=== PATIENT | female | born 1990 | race Caucasian/White ===

== ENCOUNTER 2019-04-17 17:19 | Observation (INO) | payer OTHER ==
[~2019-04-17] VITALS: Ht 170.2 cm; Wt 104.3 kg
[2019-04-17] MEDS ORDERED: BETAMETHASONE ACET/BETAMET 30 MG/5 ML VIAL IM SCH (18:25)
[2019-04-17] MEDS: LACTATED RINGERS 1,000 ML IV SCH ×2 (18:34→21:13)
[2019-04-17 18:54] LABS: BASOPHILS % 0.3 % (0.0-2.0); EOSINOPHILS % 0.4 % (0.0-5.0); HEMOGLOBIN. 12.3 g/dL (12.0-16.0); LYMPHOCYTES % 26.5 % (20.0-50.0); MEAN CORPUSCULAR HEMOGLOBIN 30.1 pg (28.0-32.0); MEAN CORPUSCULAR VOLUME 88.3 fL (81.0-99.0); MEAN PLATELET VOLUME 8.9 fl (7.4-10.4); MONOCYTES % 9.2 % (2.0-8.0); NEUTROPHILS % 63.6 % (40.0-76.0); PLATELET 201 x1000/uL (130-400); RED BLOOD CELL COUNT 4.08 mill/uL (4.2-5.4); RED CELL DISTRIBUTION WIDTH 14.3 % (11.6-14.6)
[2019-04-17 19:16] LABS: D-DIMER 1.82 mg/L FEU (<0.50); INR 0.9; PARTIAL THROMBOPLASTIN TIME 28.5 sec (23.4-31.0); PROTHROMBIN TIME 9.3 sec (9.6-11.0)
[2019-04-17 20:00] LABS: CHLORIDE 107 mEq/L (98-107)
[2019-04-17] MEDS ORDERED: PANTOPRAZOLE (20:00)
[2019-04-17] MEDS ORDERED: METFORMIN (20:00)
[2019-04-17] MEDS ORDERED: INSU100V3 SUBCUT (20:00)
[2019-04-17] MEDS ORDERED: PREN1TAB78 PO (20:00)
[2019-04-17] MEDS ORDERED: NPH,100V SQ (20:00)
[2019-04-17] MEDS ORDERED: LABE200T28 PO (20:00)
[2019-04-17] MEDS ORDERED: FOLIC (20:07)
[2019-04-17 21:00] LABS: CLARITY URINE CLEAR (CLEAR); COLOR URINE YELLOW (YELLOW); KETONES URINE 3+ (NEGATIVE); LEUKOCYTE ESTERASE URINE NEGATIVE (NEGATIVE); NITRITE URINE NEGATIVE (NEGATIVE); OCCULT BLOOD URINE NEGATIVE (NEGATIVE); PROTEIN URINE TRACE (NEGATIVE); SPECIFIC GRAVITY URINE 1.021 (1.005-1.030)
[2019-04-17] MEDS ORDERED: LABETALOL HCL 200MG TABLET PO SCH (21:00)
== END 2019-04-17 21:45 | disposition home or self-care (01) ==
LOC: 8 EST LDRP 17:19
PROVIDERS: ADMIT Obstetrics & Gynecology; ATTEND Obstetrics & Gynecology
DX: O24.913 Unspecified diabetes mellitus in pregnancy, third trimester (principal); O16.3 Unspecified maternal hypertension, third trimester; Z3A.34 34 weeks gestation of pregnancy
CPT/HCPCS: 36415; 80053; 81003; 84550; 85025; 85379; 85384; 85610; 85730; 96372; A4215; G0378; J0702; J8499; J7120

== ENCOUNTER 2019-04-18 18:07 | Observation (INO) | payer OTHER ==
[~2019-04-18] VITALS: Ht 165.1 cm; Wt 82.6 kg
[~2019-04-18 18:07] MED LIST: FOLIC; INSU100V3 SUBCUT; LABE200T28 PO; METFORMIN; NPH,100V SQ; PANTOPRAZOLE; PREN1TAB78 PO
[2019-04-18] MEDS ORDERED: BETAMETHASONE ACET/BETAMET 30 MG/5 ML VIAL IM NR (18:23)
== END 2019-04-18 19:00 | disposition home or self-care (01) ==
LOC: 8 EST LDRP 18:07
PROVIDERS: ADMIT Obstetrics & Gynecology; ATTEND Obstetrics & Gynecology
DX: O13.3 Gestational [pregnancy-induced] hypertension without significant proteinuria, third trimester (principal); O24.419 Gestational diabetes mellitus in pregnancy, unspecified control; Z3A.35 35 weeks gestation of pregnancy
CPT/HCPCS: 96372; G0378; J0702

== ENCOUNTER 2019-04-26 18:37 | Inpatient (IN) | payer OTHER ==
[~2019-04-26] VITALS: Ht 170.2 cm; Wt 106.6 kg
[2019-04-26] MEDS ORDERED: LACTATED RINGERS 1,000 ML IV SCH (19:13)
[2019-04-26] MEDS ORDERED: METF-414 PO (19:22)
[2019-04-26] MEDS ORDERED: PANT20TA3 PO (19:22)
[2019-04-26] MEDS ORDERED: FOLI-43 PO (19:22)
[2019-04-26 20:24] LABS: BASOPHILS % 0.6 % (0.0-2.0); EOSINOPHILS % 0.7 % (0.0-5.0); HEMATOCRIT. 35.7 % (36.0-48.0); HEMOGLOBIN. 12.3 g/dL (12.0-16.0); LYMPHOCYTES % 31.6 % (20.0-50.0); MEAN CORPUSCULAR HEMOGLOBIN 30.2 pg (28.0-32.0); MEAN CORPUSCULAR VOLUME 87.8 fL (81.0-99.0); MEAN PLATELET VOLUME 9.9 fl (7.4-10.4); MONOCYTES % 9.3 % (2.0-8.0); NEUTROPHILS % 57.8 % (40.0-76.0); PLATELET 196 x1000/uL (130-400); RED BLOOD CELL COUNT 4.07 mill/uL (4.2-5.4); RED CELL DISTRIBUTION WIDTH 14.3 % (11.6-14.6)
[2019-04-26 20:28] LABS: CHLORIDE 106 mEq/L (98-107)
[2019-04-26 20:39] LABS: CLARITY URINE CLEAR (CLEAR); COLOR URINE YELLOW (YELLOW); KETONES URINE NEGATIVE (NEGATIVE); LEUKOCYTE ESTERASE URINE TRACE (NEGATIVE); NITRITE URINE NEGATIVE (NEGATIVE); OCCULT BLOOD URINE NEGATIVE (NEGATIVE); PH URINE 7.5 (4.5-8.0); PROTEIN URINE 1+ (NEGATIVE); SPECIFIC GRAVITY URINE 1.018 (1.005-1.030)
[2019-04-26 20:52] LABS: *AMPHETAMINES SCREEN URINE NEGATIVE (NEGATIVE); *BARBITURATES SCREEN URINE NEGATIVE (NEGATIVE)
[2019-04-26 20:53] LABS: *BENZODIAZEPINES SCREEN URINE NEGATIVE (NEGATIVE); *COCAINE SCREEN URINE NEGATIVE (NEGATIVE); CANNABINOID URINE SCREEN NEGATIVE (NEGATIVE); METHADONE URINE SCREEN NEGATIVE (NEGATIVE); OPIATES URINE SCREEN NEGATIVE (NEGATIVE); PHENCYCLIDINE URINE SCREEN NEGATIVE (NEGATIVE)
[2019-04-26 21:04] LABS: INR 0.9; PROTHROMBIN TIME 9.5 sec (9.6-11.0)
[2019-04-26 21:11] LABS: HEPATITIS B SURFACE ANTIGEN NEGATIVE
[2019-04-26] MEDS ORDERED: MORPHINE SULFATE/PF 1MG/ML 10ML AMP ONE (21:52)
[2019-04-26] MEDS ORDERED: FENTANYL CITRATE/PF 50MCG/ML 2ML VIAL ONE (21:52)
[2019-04-26] MEDS ORDERED: BUPIVACAINE HCL/DEXTROSE/PF 0.75% 2ML AMP INJ ONE (21:52)
[2019-04-26] MEDS ORDERED: CEFAZOLIN SODIUM 1000MG/VIAL ONE (21:54)
[2019-04-26] MEDS ORDERED: CLINDAMYCIN 900 MG PREMIX 50 ML IV ONE (21:57)
[2019-04-26] MEDS ORDERED: ONDANSETRON HCL 4MG/2ML INJ ONE (21:58)
[2019-04-26] MEDS ORDERED: OXYTOCIN 10 UNITS/ML 1ML ONE (22:01)
[2019-04-26] MEDS ORDERED: CITRIC ACID/SODIUM CITRATE SOLN 30ML UDC PO SCH (22:15)
[2019-04-26] MEDS ORDERED: DIPHENHYDRAMINE 50MG/ML VIAL IV PRN (23:00)
[2019-04-26] MEDS ORDERED: BUTORPHANOL TARTRATE 2 MG/ML VIAL IV PRN (23:00)
[2019-04-26] MEDS ORDERED: NALOXONE HCL 0.4 MG/ML 1ML VIAL IV PRN (23:00)
[2019-04-26] MEDS ORDERED: KETOROLAC 30MG/ML VIAL IV PRN (23:00)
[2019-04-26] MEDS ORDERED: DEXT 5%/LR + PITOCIN 20UNITS/L 1,000 ML IV SCH (23:21)
[2019-04-26] MEDS ORDERED: DIPHENHYDRAMINE 25MG CAPSULE PO PRN (23:30)
[2019-04-26] MEDS ORDERED: LANOLIN OINT 7GM TUBE TOP PRN (23:30)
[2019-04-26] MEDS ORDERED: IBUPROFEN 400MG TABLET PO PRN (23:30)
[2019-04-26] MEDS ORDERED: BISACODYL 10MG SUPP PR PRN (23:30)
[2019-04-26] MEDS ORDERED: ONDANSETRON HCL 4MG/2ML INJ IV PRN (23:30)
[2019-04-27] VITALS (19 sets, daily range): BP systolic 114–163; BP diastolic 57–90
[2019-04-27] MEDS: KETOROLAC 30MG/ML VIAL IV PRN ×2 (01:58→11:22)
[2019-04-27] MEDS ORDERED: HYDRALAZINE 20MG/ML VIAL IV PRN ×2 (02:45)
[2019-04-27] MEDS ORDERED: OXYTOCIN 20 UNITS in LACTATED RINGERS 1,000 ML IV SCH (06:00)
[2019-04-27 06:58] LABS: BASOPHILS % 0.6 % (0.0-2.0); EOSINOPHILS % 0.3 % (0.0-5.0); HEMATOCRIT. 34.1 % (36.0-48.0); HEMOGLOBIN. 11.6 g/dL (12.0-16.0); LYMPHOCYTES % 18.5 % (20.0-50.0); MEAN CORPUSCULAR VOLUME 88.1 fL (81.0-99.0); MEAN PLATELET VOLUME 9.8 fl (7.4-10.4); MONOCYTES % 7.3 % (2.0-8.0); NEUTROPHILS % 73.3 % (40.0-76.0); PLATELET 193 x1000/uL (130-400); RED BLOOD CELL COUNT 3.87 mill/uL (4.2-5.4); RED CELL DISTRIBUTION WIDTH 14.3 % (11.6-14.6)
[2019-04-27] MEDS: FERROUS SULFATE 325MG TABLET PO SCH ×3 (07:30→17:53)
[2019-04-27] MEDS: SIMETHICONE 80MG TABLET CHEW PO SCH ×3 (08:00→17:54)
[2019-04-27] MEDS ORDERED: KETOROLAC 30MG/ML VIAL IV PRN (11:00)
[2019-04-27] MEDS: PRENATAL VIT/FE FUMARATE/FA TABLET PO SCH (17:53)
[2019-04-27] MEDS: METFORMIN HCL 500MG TABLET PO SCH (17:53)
[2019-04-27] MEDS: IBUPROFEN 800MG TABLET PO PRN (17:54)
[2019-04-27] MEDS: HYDROCODONE/ACETAMINOPHEN 5/325MG TABLET PO PRN (22:11)
[2019-04-27] MEDS: DOCUSATE SODIUM 100MG CAPSULE PO SCH (22:12)
[2019-04-27] MEDS: LABETALOL HCL 200MG TABLET PO SCH (22:12)
[2019-04-28] VITALS: BP 133/80
[2019-04-28 04:00] VITALS: BP 122/78
[2019-04-28] MEDS: FERROUS SULFATE 325MG TABLET PO SCH ×3 (07:39→17:05)
[2019-04-28] MEDS: METFORMIN HCL 500MG TABLET PO SCH ×2 (07:39→17:05)
[2019-04-28] MEDS: IBUPROFEN 800MG TABLET PO PRN ×2 (07:39→13:27)
[2019-04-28] MEDS: PRENATAL VIT/FE FUMARATE/FA TABLET PO SCH (07:40)
[2019-04-28] MEDS: LABETALOL HCL 200MG TABLET PO SCH ×2 (07:40→21:43)
[2019-04-28] MEDS: SIMETHICONE 80MG TABLET CHEW PO SCH ×5 (07:41→21:44)
[2019-04-28 08:00] VITALS: BP 128/76
[2019-04-28 12:00] VITALS: BP 128/82
[2019-04-28 16:37] VITALS: BP 122/79
[2019-04-28] MEDS: HYDROCODONE/ACETAMINOPHEN 5/325MG TABLET PO PRN (17:05)
[2019-04-28 20:43] VITALS: BP 135/69
[2019-04-28] MEDS: DOCUSATE SODIUM 100MG CAPSULE PO SCH (21:43)
[2019-04-29] MEDS: HYDROCODONE/ACETAMINOPHEN 5/325MG TABLET PO PRN (02:02)
[2019-04-29 04:38] VITALS: BP 151/85
[2019-04-29] MEDS: IBUPROFEN 800MG TABLET PO PRN (04:38)
[2019-04-29 08:00] VITALS: BP 135/82
[2019-04-29] MEDS: METFORMIN HCL 500MG TABLET PO SCH (08:13)
[2019-04-29] MEDS: FERROUS SULFATE 325MG TABLET PO SCH (08:13)
[2019-04-29] MEDS: PRENATAL VIT/FE FUMARATE/FA TABLET PO SCH (08:13)
== END 2019-04-29 11:00 | disposition home or self-care (01) | DRG 786 ==
LOC: 8 EST LDRP 18:37 → OBSVTOIN 18:37 → 8 EST LDRP 18:51 → 8EST 04-27 01:25
PROVIDERS: ADMIT Obstetrics & Gynecology; ATTEND Specialist
PROC: 10D00Z1 Extraction of Products of Conception, Low, Open Approach (ICD-10-PCS; principal; 2019-04-26)
DX: O41.03X0 Oligohydramnios, third trimester, not applicable or unspecified (principal); O60.14X0 Preterm labor third trimester with preterm delivery third trimester, not applicable or unspecified; O11.4 Pre-existing hypertension with pre-eclampsia, complicating childbirth; O32.1XX0 Maternal care for breech presentation, not applicable or unspecified; O99.213 Obesity complicating pregnancy, third trimester; E11.9 Type 2 diabetes mellitus without complications; E66.01 Morbid (severe) obesity due to excess calories; O34.211 Maternal care for low transverse scar from previous cesarean delivery; O24.92 Unspecified diabetes mellitus in childbirth; O99.214 Obesity complicating childbirth; Z79.4 Long term (current) use of insulin; Z37.0 Single live birth; Z3A.36 36 weeks gestation of pregnancy; Z91.19 Patient's noncompliance with other medical treatment and regimen
CPT/HCPCS: 36415; 76805; 76818; 80305; 80359; 82962; 84550; 85384; 86592; 86703; 86762; 86850; 86900; 87340; 88307; 96365; 96366; 96375; 96376; G0378; J0360; J0690; J1200; J1885; J2274; J2405; J2590; J3010; J3490; J7120; Q0163

== ENCOUNTER 2019-05-02 16:03 | Emergency (ER) | payer OTHER ==
[~2019-05-02] VITALS: Ht 170.2 cm; Wt 97.8 kg
[~2019-05-02 16:03] MED LIST changes: +FOLI-43 PO; -FOLIC; -INSU100V3 SUBCUT; +METF-414 PO; -METFORMIN; -NPH,100V SQ; +PANT20TA3 PO; -PANTOPRAZOLE
[2019-05-02 20:07] VITALS: BP 152/85
== END 2019-05-02 20:08 | disposition home or self-care (01) ==
LOC: ER 16:03
DX: Z48.816 Encounter for surgical aftercare following surgery on the genitourinary system (principal); O16.5 Unspecified maternal hypertension, complicating the puerperium
CPT/HCPCS: 99283

== ENCOUNTER 2019-05-10 17:21 | Inpatient (IN) | payer OTHER ==
[~2019-05-10] VITALS: Ht 162.6 cm; Wt 100.7 kg
[2019-05-10] MEDS ORDERED: CLINDAMYCIN 600 MG in DEXTROSE 5% WATER 50 ML IV ONE (18:30)
[2019-05-10] MEDS ORDERED: SODIUM CHLORIDE 0.9% 1000ML BAG (SEPSIS BOLUS) IV ONE (18:30)
[2019-05-10 18:47] LABS: BASOPHILS % 0.6 % (0.0-2.0); EOSINOPHILS % 1.6 % (0.0-5.0); HEMATOCRIT. 36.1 % (36.0-48.0); LYMPHOCYTES % 28.3 % (20.0-50.0); MEAN CORPUSCULAR HEMOGLOBIN 29.3 pg (28.0-32.0); MEAN CORPUSCULAR VOLUME 88.1 fL (81.0-99.0); MEAN PLATELET VOLUME 7.4 fl (7.4-10.4); NEUTROPHILS % 62.5 % (40.0-76.0); PLATELET 412 x1000/uL (130-400); RED BLOOD CELL COUNT 4.09 mill/uL (4.2-5.4); RED CELL DISTRIBUTION WIDTH 14.7 % (11.6-14.6)
[2019-05-10 18:52] LABS: CHLORIDE 104 mEq/L (98-107)
[2019-05-10 18:56] LABS: PARTIAL THROMBOPLASTIN TIME 23.9 sec (23.4-31.0); PROTHROMBIN TIME 10.4 sec (9.6-11.0)
[2019-05-10] MEDS ORDERED: MORPHINE SULFATE 4 MG/ML CPJ (NOT FOR IM USE) IV ONE (19:30)
[2019-05-10] MEDS ORDERED: ONDANSETRON HCL 4MG/2ML INJ IV ONE (19:30)
[2019-05-10] MEDS ORDERED: CLINDAMYCIN 600MG PREMIX 50 ML IV NR (20:00)
[2019-05-10] MEDS ORDERED: ONDANSETRON HCL 4MG/2ML INJ IV PRN (20:30)
[2019-05-10] MEDS ORDERED: LORAZEPAM 0.5MG TABLET PO PRN (20:30)
[2019-05-10 21:00] VITALS: BP_SYST 148; BP_DIAS 88; BP_DIAS 98
[2019-05-10 21:30] VITALS: BP 138/79
[2019-05-10] MEDS: LABETALOL HCL 200MG TABLET PO SCH (22:55)
[2019-05-11] VITALS: BP 121/76
[2019-05-11] MEDS: SODIUM CHLORIDE 0.9% 1,000 ML IV SCH ×4 (01:00→21:18)
[2019-05-11 04:00] VITALS: BP 129/74
[2019-05-11] MEDS: ACETAMINOPHEN 325MG TABLET PO PRN ×2 (06:20→17:54)
[2019-05-11] MEDS: LABETALOL HCL 200MG TABLET PO SCH ×3 (06:24→21:18)
[2019-05-11] MEDS: METFORMIN HCL 500MG TABLET PO SCH ×2 (07:50→17:50)
[2019-05-11 08:00] VITALS: BP 133/93
[2019-05-11 12:00] VITALS: BP 120/77
[2019-05-11 16:00] VITALS: BP 147/86
[2019-05-11 20:00] VITALS: BP 121/73
[2019-05-11] MEDS: BLOOD SUGAR DIAGNOSTIC STRIP TEST SCH (21:17)
[2019-05-12] VITALS: BP 141/83
[2019-05-12 04:00] VITALS: BP 117/60
[2019-05-12] MEDS: SODIUM CHLORIDE 0.9% 1,000 ML IV SCH ×2 (05:57→14:00)
[2019-05-12] MEDS: LABETALOL HCL 200MG TABLET PO SCH ×3 (06:02→21:10)
[2019-05-12] MEDS: BLOOD SUGAR DIAGNOSTIC STRIP TEST SCH ×4 (07:20→21:10)
[2019-05-12 08:00] VITALS: BP 132/90
[2019-05-12] MEDS: METFORMIN HCL 500MG TABLET PO SCH ×2 (09:09→17:03)
[2019-05-12 12:00] VITALS: BP 160/97
[2019-05-12 16:00] VITALS: BP 147/85
[2019-05-12 20:00] VITALS: BP 137/92
[2019-05-12 22:57] LABS: BASOPHILS % 0.7 % (0.0-2.0); EOSINOPHILS % 1.9 % (0.0-5.0); HEMATOCRIT. 35.1 % (36.0-48.0); HEMOGLOBIN. 11.8 g/dL (12.0-16.0); LYMPHOCYTES % 26.2 % (20.0-50.0); MEAN CORPUSCULAR HEMOGLOBIN 29.5 pg (28.0-32.0); MEAN CORPUSCULAR VOLUME 87.4 fL (81.0-99.0); MEAN PLATELET VOLUME 7.2 fl (7.4-10.4); MONOCYTES % 7.4 % (2.0-8.0); NEUTROPHILS % 63.8 % (40.0-76.0); PLATELET 422 x1000/uL (130-400); RED BLOOD CELL COUNT 4.02 mill/uL (4.2-5.4); RED CELL DISTRIBUTION WIDTH 14.6 % (11.6-14.6)
[2019-05-13] VITALS: BP 129/85
[2019-05-13] MEDS ORDERED: LEVOFLOXACIN 500MG TABLET PO ONE
[2019-05-13] MEDS: METRONIDAZOLE 500MG TABLET PO SCH ×3 (00:47→15:14)
[2019-05-13] MEDS ORDERED: LEVOFLOXACIN 500MG TABLET PO SCH (01:00)
[2019-05-13 04:00] VITALS: BP 150/89
[2019-05-13] MEDS: SODIUM CHLORIDE 0.9% 1,000 ML IV SCH (06:14)
[2019-05-13] MEDS: LABETALOL HCL 200MG TABLET PO SCH ×2 (06:15→15:15)
[2019-05-13] MEDS: BLOOD SUGAR DIAGNOSTIC STRIP TEST SCH ×3 (07:34→17:41)
[2019-05-13 08:00] VITALS: BP 136/77
[2019-05-13] MEDS: METFORMIN HCL 500MG TABLET PO SCH ×2 (08:11→17:41)
[2019-05-13 12:00] VITALS: BP 148/78
[2019-05-13 16:00] VITALS: BP 147/98
[2019-05-13 17:21] VITALS: BP 147/98
[2019-05-14] MEDS ORDERED: LEVOFLOXACIN 500MG TABLET PO SCH (11:00)
== END 2019-05-13 18:55 | disposition home health service (06) | DRG 769 ==
LOC: ER 17:21 → 6EST 19:49 → EDBEDREQTM 19:53 → EDBEDREQ 19:53 → ENRESERV 20:19 → 6EST 05-12 12:54
PROVIDERS: ADMIT Specialist; ATTEND Specialist
PROC: 0JB80ZZ Excision of Abdomen Subcutaneous Tissue and Fascia, Open Approach (ICD-10-PCS; principal; 2019-05-10)
DX: O90.0 Disruption of cesarean delivery wound (principal); O24.33 Unspecified pre-existing diabetes mellitus in the puerperium; E11.8 Type 2 diabetes mellitus with unspecified complications; E66.9 Obesity, unspecified; O10.93 Unspecified pre-existing hypertension complicating the puerperium; O99.215 Obesity complicating the puerperium; Z88.1 Allergy status to other antibiotic agents; Z79.899 Other long term (current) drug therapy; Z88.0 Allergy status to penicillin; Z79.84 Long term (current) use of oral hypoglycemic drugs; I10 Essential (primary) hypertension
CPT/HCPCS: 36415; 71045; 82962; 83605; 84145; 86850; 86900; 93005; 96361; 96365; 96375; 99285; J2270; J2405; J3490; J7030; J7060